=== PATIENT | female | born 1975 | race Asian ===

== ENCOUNTER → 2016-04-20 | Outpatient (CLI) | payer BC ==
[~2016-04-20] MED LIST: GADAVIST IV PRN
--- NOTE | 2016-04-20 15:56 | DIAGNOSTIC IMAGING REPORT ---
MRI OF THE BRAIN AND IACS WITHOUT AND WITH IV CONTRAST CLINICAL HISTORY: Hearing loss, deviated nasal septum. COMPARISON STUDY: No previous studies for comparison. TECHNIQUE: MRI of the brain was performed from the vertex to the skull base utilizing various T1 and T2 weighted sequences. Following the IV administration of 5.5 mL of Gadavist contrast, additional enhanced images were obtained. FINDINGS: There is significant anterior artifact from facial metal. Sagittal T1, axial diffusion, proton density and T2 weighted axial, coronal FLAIR, and pre and post axial T1-weighted images were acquired. These were supplemented with post gadolinium coronal T1 weighted images. No intra or extra-axial mass lesions are visualized. Axial diffusion-weighted images reveal no evidence of acute or subacute infarction. There is no evidence of ventricular dilatation. Proton density T2-weighted and FLAIR images reveal no significant intraparenchymal signal abnormalities. Apparent subarachnoid foci of increased signal on the FLAIR images anteriorly, likely relates to artifact. There are no abnormal flow voids. There is no evidence of pathologic enhancement.. No cerebellopontine angle masses are visualized. The seventh 8th nerve complexes appear normal. IMPRESSION: Significant anterior artifact. No abnormalities identified. Electronically signed by: Gulshan Mendes M.D. 04/20/2016 3:54 PM Dictated Date/Time: 04/20/2016 3:49 PM
== END | disposition home or self-care (01) ==
LOC: C.MRI 14:31
PROVIDERS: ATTEND Otolaryngology
DX: J34.2 Deviated nasal septum (principal)

== ENCOUNTER → 2017-03-20 | Outpatient (CLI) | payer BC ==
--- NOTE | 2017-03-20 09:16 | DIAGNOSTIC IMAGING REPORT ---
CHEST 2 VIEWS ROUTINE CLINICAL HISTORY: Pulmonary sequestration follow-up. COMPARISON STUDY: Chest CT April 06, 2016. FINDINGS: There is no pneumothorax. There is blunting of the right costophrenic angle with postoperative findings within the right lower lung and a suspected small right pleural effusion. Note is made of expected mild right lower lung volume loss with probable mild elevation of the right hemidiaphragm. There is no left pleural effusion. Cardiac size is normal. There is no consolidation to suggest pneumonia. Pulmonary vascularity is normal. IMPRESSION: Interval postoperative findings within the right lower lung with mild expected volume loss. Blunting of the right costophrenic angle could be related to prior surgery or reflect a small pleural effusion. Electronically signed by: Prabhu Erickson M.D. 03/20/2017 9:14 AM Dictated Date/Time: 03/20/2017 9:09 AM
== END | disposition home or self-care (01) ==
LOC: C.RAD1850 08:42
PROVIDERS: ATTEND Family Medicine
DX: Q33.2 Sequestration of lung (principal)

== ENCOUNTER → 2017-03-22 | Outpatient (CLI) | payer BC ==
--- NOTE | 2017-03-22 09:25 | DIAGNOSTIC IMAGING REPORT ---
ABDOMEN COMPLETE (US) HISTORY: Pain. Nausea. ABDOMINAL PAIN. COMPARISON: None. FINDINGS: Pancreas: The pancreas demonstrates a normal echotexture. Liver: Unremarkable. Gallbladder: No gallbladder wall thickening. No gallstones. CBD: 4 mm Kidneys: No hydronephrosis. Spleen: Normal in size. Uniform echogenicity Aorta: Normal in caliber. IVC: Patent. IMPRESSION: No significant abnormality identified within the within the abdomen. The above report was generated using voice recognition software. It may contain grammatical, syntax or spelling errors. Electronically signed by: Vic Chaparro M.D. 03/22/2017 9:24 AM Dictated Date/Time: 03/22/2017 9:22 AM
== END | disposition home or self-care (01) ==
LOC: C.ULTR 08:47
PROVIDERS: ATTEND Family Medicine
DX: R10.9 Unspecified abdominal pain (principal)

== ENCOUNTER → 2017-11-01 | Outpatient (CLI) | payer OTHER ==
[~2017-11-01] MED LIST changes: -GADAVIST IV PRN; +OPTIRAY 320 IV PRN
--- NOTE | 2017-11-01 09:30 | DIAGNOSTIC IMAGING REPORT ---
ADDENDUM Addendum: No definite pulmonary emboli are identified. Equivocal filling defects within subsegmental pulmonary arteries of the superior segment of the left lower lobe shown best on image 138 of 346 are likely due to respiratory motion artifact. Small pulmonary embolus could appear similar although is considered less likely. If persistent symptoms, a repeat PE protocol CT is recommended. Electronically signed by: Prabhu Erickson M.D. 11/06/2017 7:34 AM Dictated Date/Time: 11/06/2017 7:[address] ANGIOGRAPHY OF THE CHEST CLINICAL HISTORY: Pulmonary sequestration. COMPARISON STUDY: Chest CT April 06, 2016 and chest radiograph March 20, 2017. TECHNIQUE: Helical axial images of the chest were obtained during arterial phase following intravenous injection of 118 cc Optiray 320 IV. Sagittal and coronal reconstructions were viewed as well as maximal intensity projections on an independent 3-D workstation. FINDINGS: Expected postoperative findings within the right lower lobe are noted status post sequestration resection. There is no pneumothorax. Trace bilateral pleural effusions are noted. A few small pulmonary nodules which measure up to 4 mm are unchanged since CT of February 22, 2016. These are considered benign. No new nodules are present. There is no consolidation to suggest pneumonia. Bony thorax and upper abdomen are unremarkable. No thoracic lymphadenopathy. IMPRESSION: 1. Expected postoperative findings within the right lower lobe status post sequestration resection. 2. Trace bilateral pleural effusions. 3. No change in several small pulmonary nodules since CT of February 22, 2016. These are considered benign. Electronically signed by: Prabhu Erickson M.D. 11/01/2017 9:28 AM Dictated Date/Time: 11/01/2017 8:49 AM
== END | disposition home or self-care (01) ==
LOC: C.CTS 08:07
PROVIDERS: ATTEND Family Medicine
DX: R91.8 Other nonspecific abnormal finding of lung field (principal); Q33.2 Sequestration of lung; R00.2 Palpitations

== ENCOUNTER 2017-11-10 23:30 | Emergency (ER) | payer OTHER ==
[~2017-11-10] VITALS: Ht 162.6 cm; Wt 57.0 kg
[2017-11-10 23:36] VITALS: TEMP 36.8; Ht 162.6 cm; Wt 57.0 kg
[2017-11-11 00:20] LABS: BASO % 0.3 %; BASO ABS # 0.02 K/uL (0-0.2); EOS % 2.6 %; EOS ABS # 0.15 K/uL (0-0.5); HEMATOCRIT 37.5 % (37-47); HEMOGLOBIN 12.9 g/dL (12.0-16.0); IG# 0.01 K/uL (0.00-0.02); LYMPH % 31.4 %; MEAN CELL VOLUME 90.4 fL (80-100); MEAN CORPUSCULAR HEMOGLOBIN 31.1 pg (25-34); MEAN CORPUSCULAR HGB CONC 34.4 g/dl (32-36); MEAN PLATELET VOLUME 9.9 fL (7.4-10.4); MONO % 5.8 %; MONO ABS # 0.33 K/uL (0.11-0.59); NEUT % 59.7 %; NEUT ABS # 3.42 K/uL (1.4-6.5); PLATELET COUNT 191 K/uL (130-400); RED CELL DISTRIBUTION WIDTH CV 11.8 % (11.5-14.5); WHITE BLOOD COUNT 5.73 K/uL (4.8-10.8)
[2017-11-11 00:53] VITALS: O2SAT 100
[2017-11-11 01:03] LABS: ALBUMIN 3.7 gm/dl (3.4-5.0); CREATININE 0.63 mg/dl (0.60-1.20); POTASSIUM 3.7 mmol/L (3.5-5.1); TOTAL PROTEIN 6.9 gm/dl (6.4-8.2)
[2017-11-11] MEDS ORDERED: POTASSIUM CHLORIDE 20 MEQ TABCR PO STA (02:09)
[2017-11-11] MEDS ORDERED: POTASSIUM CHLR 10 MEQ / WTR 100 ML IV STA (02:09)
[2017-11-11] MEDS ORDERED: POTASSIUM CHLORIDE 10 MEQ TABCR ONE (02:21)
--- NOTE | 2017-11-11 02:35 | Medical Consult ---
Consultation Date of Consultation: Nov 11, 2017. Attending Physician: Reason for Consultation: Palpitations History of Present Illness Esther is a 41 year old female that has been experiencing two weeks of palpitations. She notes that the palpitations feel like a heaviness in her chest and started two weeks ago. They come and go every few minutes and there is nothing in particular that makes them better or worse. Associated symptoms include shortness of breath and dizziness. She notes that her symptoms have been worsening throughout the week. She said she had a exercise stress test done and a holter monitor as an outpatient and was told she had a LBBB. She notes she also had a CT scan of her chest on Saturday which did not show any acute findings. She notes she had a partial lobectomy last year at [facility] due to lung sequestration. She does not take any OTC medications, she does not drink coffee. She eats healthily and exercises regularly. Family History Mother has a heart condition Social History Smoking Status: Never Smoker Alcohol Use: none Drug Use: none Marital Status: Housing Status: lives with family Occupation Status: employed Allergies Coded Allergies: No Known Allergies (Unverified , 11/11/17) Home Medications none Current Inpatient Medications Current Inpatient Medications Medications (Trade) Dose Ordered Sig/Kirill Route Start Time Stop Time Status Last Admin Dose Admin Potassium Chloride 100 ml @ 100 mls/hr NOW STAT IV 11/11/17 02:09 11/11/17 03:08 Review of Systems 10 systems were reviewed and negative except as noted in the HPI Physical Exam Date Time Temp Pulse Resp B/P (MAP) Pulse Ox O2 Delivery O2 Flow Rate FiO2 11/11/17 01:47 79 11/11/17 01:00 44 18 102/60 99 Nasal Cannula 2.0 11/11/17 00:53 100 Nasal Cannula 2.0 11/11/17 00:53 69 16 108/77 100 Nasal Cannula 2.0 11/11/17 00:30 79 22 99 11/11/17 00:08 100 Room Air 11/11/17 00:05 108/60 11/11/17 00:05 99 11/11/17 00:05 73 11/11/17 00:04 77 11/11/17 00:00 82 19 100 11/10/17 23:54 90 11/10/17 23:45 100 Room Air 11/10/17 23:36 36.8 77 18 113/72 100 Room Air General Appearance: WD/WN, no apparent distress Head: normocephalic, atraumatic ENT: hearing grossly normal, pharynx normal Neck: supple, no adenopathy, no JVD, no carotid bruits, trachea midline Respiratory/Chest: lungs clear, no respiratory distress, no accessory muscle use Cardiovascular: no JVD, no murmur, normal peripheral pulses, + abnormal rhythm Extremities/Musculoskelatal: normal inspection, no calf tenderness, no pedal edema, non-tender Neurologic/Psych: alert, oriented x 3, + pertinent finding (anxious affect) Skin: normal color, warm/dry, no rash Laboratory Results Last 24 Hours Test 11/11/17 00:12 11/11/17 00:13 White Blood Count 5.73 K/uL Red Blood Count 4.15 M/uL Hemoglobin 12.9 g/dL Hematocrit 37.5 % Mean Corpuscular Volume 90.4 fL Mean Corpuscular Hemoglobin 31.1 pg Mean Corpuscular Hemoglobin Concent 34.4 g/dl Platelet Count 191 K/uL Mean Platelet Volume 9.9 fL Neutrophils (%) (Auto) 59.7 % Lymphocytes (%) (Auto) 31.4 % Monocytes (%) (Auto) 5.8 % Eosinophils (%) (Auto) 2.6 % Basophils (%) (Auto) 0.3 % Neutrophils # (Auto) 3.42 K/uL Lymphocytes # (Auto) 1.80 K/uL Monocytes # (Auto) 0.33 K/uL Eosinophils # (Auto) 0.15 K/uL Basophils # (Auto) 0.02 K/uL RDW Standard Deviation 39.0 fL RDW Coefficient of Variation 11.8 % Immature Granulocyte % (Auto) 0.2 % Immature Granulocyte # (Auto) 0.01 K/uL Sodium Level 139 mmol/L Potassium Level 3.7 mmol/L Chloride Level 107 mmol/L Carbon Dioxide Level 27 mmol/L Anion Gap 5.0 mmol/L Blood Urea Nitrogen 10 mg/dl Creatinine 0.63 mg/dl Est Creatinine Clear Calc Drug Dose 99.5 ml/min Estimated GFR () 127.3 Estimated GFR (Non- 109.9 BUN/Creatinine Ratio 16.3 Random Glucose 100 mg/dl Calcium Level 9.0 mg/dl Magnesium Level 2.3 mg/dl Total Bilirubin 0.5 mg/dl Direct Bilirubin 0.1 mg/dl Aspartate Amino Transf (AST/SGOT) 16 U/L Alanine Aminotransferase (ALT/SGPT) 21 U/L Alkaline Phosphatase 48 U/L Total Protein 6.9 gm/dl Albumin 3.7 gm/dl Thyroid Stimulating Hormone (TSH) 3.490 uIu/ml Human Chorionic Gonadotropin, Qual NEG Lyme Disease IgG Antibody NEG Lyme Disease IgM Antibody NEG Bedside D-Dimer 421 ng/mlFEU Bedside Troponin I < 0.030 ng/ml Assessment & Plan Patient is a 41 year old female that presented due to palpitations and shortness of breath. During her hospital stay her heart rates was variable from 45-100; otherwise her other vital signs were stable. She had a CBC, CMP, BHCG, Trop, mag, tsh, lyme and d dimer which were all negative. She had an unremarkable CXR and she had an EKG that showed some PVC's. The patients exam was unremarkable except for an abnormal heart rhythm. The patient remained asymptomatic while in the room. Dr. Bauer suggested giving the patient 10meq of IV potassium and 20meq of PO potassium as her K was likely on the low side for her. She has an appointment with a nuclear medicine technologist on the . She was instructed to follow up with her PCP in the next 2-3 days. If she experiences any worsening shortness of breath, palpitations or chest pain then she was instructed to come back to the emergency department. Patient understood and was in agreement with this plan. Attending addendum: I have physically seen this patient, have supervised the medical residents activities, and agree with the H&P unless as otherwise noted. Assessment and Plan: Intermittent bigeminy with isolated PVCs interspersed with normal sinus rhythm-- Variable heart rate the patient was experiencing was more of a pseudo effect due to the recording devices at home and in hospital only detecting the PVCs as opposed to her regular beats as well. Would suggest optimizing the patient's potassium with a 10 mEq K rider, and 20 mEq p.o. potassium now, and adjust her diet in the outpatient setting. Would suggest she follow-up in outpatient office with her primary physician and/ or cardiology.
[2017-11-11 03:42] VITALS: BP 95/53; PULSE 68; O2SAT 100
--- NOTE | 2017-11-11 03:44 | EMERGENCY ROOM VISIT NOTE ---
History First contact with patient: 23:40 Chief Complaint: CARDIAC ASSESSMENT Stated Complaint: HEART BEATING SLOW AND FAST,NAUSEA,CAN'T BREATHE Nursing Triage Summary: Pt c/o heart arrythmia. Pt states her HR goes from 40s to 70s and has shortness of breath, feels like her heart is skipping. Pt had stress test done last week, and has had an echo and holter monitor testing recently. pt unable to recall results. Pt denies chest pain but reports some difficulty breathing during low HR. Some dizziness. Pt states this started one week ago. History of Present Illness The patient is a 41 year old female who presents to the Emergency Room with complaints of persistent worsening palpitations for the past few weeks feels short of breath when the symptoms occur. Patient had an stress echo a stress test last week and Holter monitor. The stress test showed frequent PVCs per patient. She does not have a Holter monitor results. She has an appointment in 3 and half weeks with cardiology. She cannot recall the doctor's name but will be with [place] here in town. Patient denies chest pain, abdominal pain, constant shortness of breath, leg pain or swelling, fevers, recent illness. No control. She has traveled recently. No family history of heart disease or blood clots. No prior history of heart disease or blood clots. Patient is concerned because her symptoms are progressing. She called the family care doctor and was advised to go the ER for possible admission. Review of Systems An 10 system review of systems was completed with positives and pertinent negatives listed in the HPI. Past Medical/Surgical History Lung surgery Social History Smoking Status: Never Smoker Drug Use: none Marital Status: Housing Status: lives with family Current/Historical Medications No Active Prescriptions or Reported Meds Physical Exam Vital Signs Date Time Temp Pulse Resp B/P (MAP) Pulse Ox O2 Delivery O2 Flow Rate FiO2 11/11/17 03:00 67 14 101/67 96 Room Air Nasal Cannula 11/11/17 02:30 47 20 102/46 99 Nasal Cannula 2.0 11/11/17 02:00 93 22 137/80 99 Nasal Cannula 2.0 11/11/17 01:47 79 11/11/17 01:30 66 16 110/71 99 Nasal Cannula 2.0 11/11/17 01:00 44 18 102/60 99 Nasal Cannula 2.0 11/11/17 00:53 100 Nasal Cannula 2.0 11/11/17 00:53 69 16 108/77 100 Nasal Cannula 2.0 11/11/17 00:30 79 22 99 11/11/17 00:08 100 Room Air 11/11/17 00:05 108/60 11/11/17 00:05 99 11/11/17 00:05 73 11/11/17 00:04 77 11/11/17 00:00 82 19 100 11/10/17 23:54 90 11/10/17 23:45 100 Room Air 11/10/17 23:36 36.8 77 18 113/72 100 Room Air Physical Exam VITALS: Vitals are noted on the nurse's note and reviewed by myself. Vital signs stable. GENERAL: Anxious appearing female, in no acute distress, nondiaphoretic, well- developed well-nourished. SKIN: The skin was without rashes, erythema, edema, or bruising. There is no tenting of the skin. Capillary reflex less than 2 seconds. HEAD: Normocephalic atraumatic. EARS: External auditory canals clear, tympanic membranes pearly lr without erythema or effusion bilaterally. EYES: Pupils equal round and reactive to light and accommodation. Conjunctivae without injection, sclerae without icterus. Extraocular movements intact. NOSE: Patent, turbinates without inflammation or discharge. MOUTH: Mucous membranes moist. Pharynx without erythema or exudate. Uvula midline. Airway patent. Tongue does not deviate. NECK: Supple without nuchal rigidity. No lymphadenopathy. No thyromegaly. Cervical spine is nontender. No JVD. HEART: Regular rate and rhythm without murmurs gallops or rubs. LUNGS: Clear to auscultation bilaterally without wheezes, rales or rhonchi. No retractions or accessory muscle use. ABDOMEN: Positive bowel sounds x 4. Normal tympanic percussion. Soft, nontender, without masses or organomegaly. Siu sign negative. No guarding or rebound tenderness. No CVA tenderness MUSCULOSKELETAL: No muscle atrophy, erythema, or edema noted. NEURO: Patient was alert and oriented to person place and time. Normal sensation to light and sharp touch. No focal neurological deficits. Medical Decision & Procedures Laboratory Results 11/11/17 00:12 Red Blood Count 4.15, Mean Corpuscular Volume 90.4, Mean Corpuscular Hemoglobin 31.1, Mean Corpuscular Hemoglobin Concent 34.4, Mean Platelet Volume 9.9, Neutrophils (%) (Auto) 59.7, Lymphocytes (%) (Auto) 31.4, Monocytes (%) (Auto) 5.8, Eosinophils (%) (Auto) 2.6, Basophils (%) (Auto) 0.3, Neutrophils # (Auto) 3.42, Lymphocytes # (Auto) 1.80, Monocytes # (Auto) 0.33, Eosinophils # (Auto) 0.15, Basophils # (Auto) 0.02 11/11/17 00:12 Test 11/11/17 00:12 11/11/17 00:13 White Blood Count 5.73 K/uL (4.8-10.8) Red Blood Count 4.15 M/uL (4.2-5.4) Hemoglobin 12.9 g/dL (12.0-16.0) Hematocrit 37.5 % (37-47) Mean Corpuscular Volume 90.4 fL (80-100) Mean Corpuscular Hemoglobin 31.1 pg (25-34) Mean Corpuscular Hemoglobin Concent 34.4 g/dl (32-36) Platelet Count 191 K/uL (130-400) Mean Platelet Volume 9.9 fL (7.4-10.4) Neutrophils (%) (Auto) 59.7 % Lymphocytes (%) (Auto) 31.4 % Monocytes (%) (Auto) 5.8 % Eosinophils (%) (Auto) 2.6 % Basophils (%) (Auto) 0.3 % Neutrophils # (Auto) 3.42 K/uL (1.4-6.5) Lymphocytes # (Auto) 1.80 K/uL (1.2-3.4) Monocytes # (Auto) 0.33 K/uL (0.11-0.59) Eosinophils # (Auto) 0.15 K/uL (0-0.5) Basophils # (Auto) 0.02 K/uL (0-0.2) RDW Standard Deviation 39.0 fL (36.4-46.3) RDW Coefficient of Variation 11.8 % (11.5-14.5) Immature Granulocyte % (Auto) 0.2 % Immature Granulocyte # (Auto) 0.01 K/uL (0.00-0.02) Anion Gap 5.0 mmol/L (3-11) Est Creatinine Clear Calc Drug Dose 99.5 ml/min Estimated GFR () 127.3 Estimated GFR (Non- 109.9 BUN/Creatinine Ratio 16.3 (10-20) Calcium Level 9.0 mg/dl (8.5-10.1) Magnesium Level 2.3 mg/dl (1.8-2.4) Total Bilirubin 0.5 mg/dl (0.2-1) Direct Bilirubin 0.1 mg/dl (0-0.2) Aspartate Amino Transf (AST/SGOT) 16 U/L (15-37) Alanine Aminotransferase (ALT/SGPT) 21 U/L (12-78) Alkaline Phosphatase 48 U/L (45-117) Total Protein 6.9 gm/dl (6.4-8.2) Albumin 3.7 gm/dl (3.4-5.0) Thyroid Stimulating Hormone (TSH) 3.490 uIu/ml (0.300-4.500) Human Chorionic Gonadotropin, Qual NEG (NEG) Lyme Disease IgG Antibody NEG (NEG) Lyme Disease IgM Antibody NEG (NEG) Bedside D-Dimer 421 ng/mlFEU (0-450) Bedside Troponin I < 0.030 ng/ml (0-0.045) Medications Administered Medications (Trade) Dose Ordered Sig/Kirill Route Start Time Stop Time Status Last Admin Dose Admin Potassium Chloride 100 ml @ 100 mls/hr NOW STAT IV 11/11/17 02:09 11/11/17 03:08 DC 11/11/17 02:26 100 MLS/HR Potassium Chloride (Klor-Con M10) 20 meq STK-MED ONCE .ROUTE 11/11/17 02:21 11/11/17 02:22 DC 11/11/17 02:26 20 MEQ ED Course Prior records/ancillary studies reviewed. Triage Nursing notes reviewed. Additional history obtained from family. The patient's history was concerning for palpitations. Differential diagnosis: Etiologies such as premature contractions, electrolyte abnormality, cardiac dysrhythmia, thyroid dysfunction, pulmonary embolism, infection, gastrointestinal, as well as others were entertained. Physical examination: Benign as above. ER treatment provided: The hospitalist recommended getting potassium and this is prescribed by them On reassessment the patient felt better. Diagnostic interpretation by me: Cardiac monitoring revealed frequent PVCs with bigeminy. The electrocardiogram was negative for pathologic change. Normal sinus, normal intervals, occasional PVC. No acute ST-T wave changes. Impression normal sinus rhythm with occasional PVC interpreted by myself I think arrhythmia is unlikely. EKG shows normal sinus rhythm with no interval abnormalities such as QT prolongation or WPW. There are no findings to suggest Brugada syndrome. Cardiac monitoring in the emergency department reveals no tachycardic or bradycardic dysrhythmia. Hypertrophic cardiomyopathy was considered but there are no clear historical elements pointing toward this. EKG is not suggestive. The QRS voltage is not extremely large and there are no suggestive Q waves. The labs revealed negative d-dimer. Negative troponin. Euthyroid. Negative Lyme test Imaging studies: Chest x-ray with no acute consolidation, pneumothorax or free air per my interpretation CT ANGIOGRAPHY OF THE CHEST CLINICAL HISTORY: Pulmonary sequestration. COMPARISON STUDY: Chest CT April 06, 2016 and chest radiograph March 20, 2017. TECHNIQUE: Helical axial images of the chest were obtained during arterial phase following intravenous injection of 118 cc Optiray 320 IV. Sagittal and coronal reconstructions were viewed as well as maximal intensity projections on an independent 3-D workstation. FINDINGS: Expected postoperative findings within the right lower lobe are noted status post sequestration resection. There is no pneumothorax. Trace bilateral pleural effusions are noted. A few small pulmonary nodules which measure up to 4 mm are unchanged since CT of February 22, 2016. These are considered benign. No new nodules are present. There is no consolidation to suggest pneumonia. Bony thorax and upper abdomen are unremarkable. No thoracic lymphadenopathy. IMPRESSION: 1. Expected postoperative findings within the right lower lobe status post sequestration resection. 2. Trace bilateral pleural effusions. 3. No change in several small pulmonary nodules since CT of February 22, 2016. These are considered benign. Electronically signed by: Prabhu Erickson M.D. HEART SCORE: Hx: high/mod/low suspicion: 0 ECG: ST depression/nonspecific changes/normal: 0 Age: Greater than 65/45-64/less than 45: 0 Risk factors: (Hypertension, hyperlipidemia, diabetes, coronary disease, tobacco use, cocaine use): 0 Troponin: Greater than 2 times normal limits/1-2 times normal limits/normal: 0 Total: 0 Wells Score Symptoms of DVT 3pt: 0 Alternative diagnoses better explains illness 3pts: 0 Tachycardia greater than 100 1.5 pts 0 Immobilization greater than 3 days or surgery in the previous 4 weeks 1.5 pts: 0 Prior history of DVT or PE 1.5 pts: 0 Presence of hemoptysis 1pt: 0 Presence of malignancy 1pt: 0 (Score greater than 6 is high probability, score 2-6 moderate probability, score less than 2 low probability) Total: 0 The pulmonary embolism rule out criteria (PERC rule) Age <50 years 0 Heart rate <100 bpm 0 Oxyhemoglobin saturation =95% 0 No hemoptysis 0 No estrogen use 0 No prior DVT or PE 0 No unilateral leg swelling 0 No surgery/trauma requiring hospitalization within the prior four weeks 0 (0 low risk) Total: 0 Consultation: A consultation was placed with the [facility] hospitalist, Dr. Barrett. The case was discussed and diagnostics were reviewed. The patient was evaluated in the ER for further treatment. They recommend discharge with outpatient follow-up as scheduled. They state the patient is safe to be discharged home. This appears to be consistent with palpitations. Patient had extensive workup outpatient already. She is advised to follow-up as scheduled with cardiology or call for sooner appointment. Patient had unremarkable workup as above. Monitor should frequent PVCs with bigeminy. No other discernible dysrhythmia. Patient had a negative heart score. Negative well score. Negative PERC score. Labs showed euthyroid. Stable H&H. She was not . She is advised to return to the ER mainly for chest pain, difficulty breathing, worsening signs or symptoms or as needed. She is advised to call family care doctor today for follow-up with them or cardiology this week. By the evaluation outlined above emergent etiologies such as electrolyte abnormality, cardiac dysrhythmia, thyroid dysfunction, pulmonary embolism, infection, as well as others were deemed relatively unlikely. The pt informed about the findings as listed above. All questions were answered and pleased with the treatment. Return instructions were outlined and the patient was discharged in stable condition. Referral: The patient was referred back to their primary care physician for follow-up in 2 to 3 days for a recheck of the current condition Case reviewed with my attending The chart was completed utilizing [employer] voice recognition software. Grammatical errors, random word insertions, pronoun errors, and incomplete sentences are an occassional consequence of this system due to software limitations, ambient noise, and hardware issues. Any formal questions or concerns about the content, text, or information contained within the body of this dictation should be directly addressed to the physician drafter assistant for clarification. Medical Decision As above Medication Reconcilliation Current Medication List: was personally reviewed by me Blood Pressure Screening Patient's blood pressure: Normal blood pressure Impression Primary Impression: Palpitations Departure Information Dispostion Home / Self-Care Condition GOOD Prescriptions No Active Prescriptions or Reported Meds Referrals Beny Kathleen M.D. (PCP) Patient Instructions My [facility] Additional Instructions Recommend follow-up as scheduled with cardiology. Decrease caffeine, alcohol, tobacco and salt intake. Avoid stimulants near bedtime. Ibuprofen(Motrin, Advil) may be used for fever or pain. Use 600mg every six hours as needed. Take with food. Avoid using more than 2400mg in a 24 hour period. Do not use 2400mg per day for more than three consecutive days without physician direction. Prolonged inappropriate use can lead to stomach upset or ulcers. (AND/OR) Acetaminophen(Tylenol) may be used for fever or pain. Use 1000mg every six hours as needed. Avoid using more than 3000mg in a 24 hour period. Rest and drink plenty of fluids as tolerated. Continue current medications. Avoid strenuous activities and anything that worsens your symptoms. Resume normal activities once your symptoms resolve. Return to the ER immediately for worsening or persistent prolonged palpitations , abdominal pain, vomiting, fevers, chest pains, difficulty breathing, worsening of your condition, or as needed. Follow up with your primary physician in 2-3 days for a recheck of your current condition.
--- NOTE | 2017-11-11 06:44 | DIAGNOSTIC IMAGING REPORT ---
CHEST ONE VIEW PORTABLE HISTORY: 41 years-old Female CHEST PAIN acute atypical chest pain with cardiac palpitations COMPARISON: Chest radiographs 03/20/2017, CTA chest 11/01/2017 TECHNIQUE: Portable AP view of the chest FINDINGS: Cardiomediastinal and hilar silhouettes are within normal limits. Chronic blunting of the right costophrenic angle related to postoperative changes of the right lung. No pneumothorax, pleural effusion, focal airspace consolidation or overt pulmonary edema. Unchanged mild right hemidiaphragmatic elevation. Bones of the chest appear grossly intact. IMPRESSION: 1. No acute process. 2. Chronic postoperative changes of the right lung. The above report was generated using voice recognition software. It may contain grammatical, syntax or spelling errors. Electronically signed by: Declan Hollingsworth M.D. 11/11/2017 6:43 AM Dictated Date/Time: 11/11/2017 6:41 AM
== END 2017-11-11 03:47 | disposition home or self-care (01) ==
LOC: C.EDB 23:36
DX: R00.2 Palpitations (principal)